=== PATIENT | female | born 1985 | race Caucasian/White ===

== ENCOUNTER 2022-01-03 08:00 | Outpatient (CLI) | payer OTHER ==
--- NOTE | 2022-01-03 13:21 | XRAY Report ---
PROCEDURE: Finger(s) RT INDICATIONS: 2ND MC FX TECHNIQUE: AP hand, 2 views of the second finger(s) acquired. COMPARISON: Right hand radiographs 12/27/2021 FINDINGS: Bones: Second digit metacarpal head avulsion fracture is unchanged. No periosteal reaction is demonst rated. No dislocation. No suspicious bony lesions. Soft tissues: No suspicious soft tissue calcifications. IMPRESSION: Stable second digit metacarpal head avulsion fracture. Reviewed by: Arias Gordon MD on 01/03/2022 1:20 PM PDT Approved by: Arias Gordon MD on 01/03/2022 1:20 PM PDT Station ID: [id number]
== END 2022-01-03 23:59 | disposition home or self-care (01) ==
LOC: DI.WOS 08:00
PROVIDERS: ATTEND Orthopaedic Surgery
DX: S62.390A Other fracture of second metacarpal bone, right hand, initial encounter for closed fracture (principal)

== ENCOUNTER 2022-04-19 15:39 | Outpatient (CLI) | payer OTHER ==
--- NOTE | 2022-04-19 21:04 | XRAY Report ---
PROCEDURE: Finger(s) RT INDICATIONS: RIGHT 2ND FINGER FRACTURE TECHNIQUE: AP hand, 3 views of the second finger(s) acquired. COMPARISON: X-ray fingers 01/03/2022 FINDINGS: Bones: Previous avulsion type appearance of the distal second metacarpal is less prominent when luz red to prior exam. Stable alignment. No suspicious bony lesions. Soft tissues: No suspicious soft tissue calcifications. IMPRESSION: Less prominent appearance of second metacarpal head avulsion fracture. Reviewed by: Pretty Whalen MD on 04/19/2022 9:03 PM PST Approved by: Pretty Whalen MD on 04/19/2022 9:03 PM PST Station ID: [id number]
== END 2022-04-19 15:40 | disposition home or self-care (01) ==
LOC: DI.WOS 15:39
PROVIDERS: ATTEND Physician Assistant Surgical
DX: S62.330D Displaced fracture of neck of second metacarpal bone, right hand, subsequent encounter for fracture with routine healing (principal)

== ENCOUNTER 2022-08-18 14:48 | Outpatient (CLI) | payer OTHER ==
[2022-08-19 03:09] LABS: HSV 2 IGG TYPE SPEC <0.91 index (0.00-0.90)
== END 2022-08-18 14:49 | disposition home or self-care (01) ==
LOC: LAB 14:48
PROVIDERS: ATTEND Nurse Practitioner
DX: N90.89 Other specified noninflammatory disorders of vulva and perineum (principal)
CPT/HCPCS: 36415; 86695; 86696